=== PATIENT | male | born 1995 | race Two or more races ===

== ENCOUNTER → 2024-07-07 | Outpatient (CLI) | payer OTHER, SELFPAY ==
--- NOTE | 2024-07-07 15:53 | XR_ITS ---
Examination: Thoracic spine 3 views Technique one AP lateral coned lateral upper dorsal spine 3 views Exam date and time: July 07, 2024 1615 hours INDICATIONS: Upper back pain after falling today. FINDINGS: Adequate alignment thoracic vertebral bodies No acute thoracic fracture Intact pedicles IMPRESSION: No acute thoracic fracture
--- NOTE | 2024-07-07 15:53 | XR_ITS ---
Examination: Cervical spine 4 views TECHNIQUE: AP lateral coned AP odontoid swimmer's lateral cervical spine 4 views Exam date and time: July 07, 2024 1604 hours INDICATIONS: Patient fell today with injury to the neck, neck pain. FINDINGS: Satisfactory alignment cervical vertebral bodies No cervical fracture Intact odontoid IMPRESSION: No cervical fracture, no significant cervical disc narrowing
--- NOTE | 2024-07-07 15:53 | XR_ITS ---
Examination: Sternum 2 views TECHNIQUE: Oblique lateral sternum 2 views INDICATIONS: Patient fell today with into the sternum, sternal pain. FINDINGS: Suspicious for fracture upper body the sternum without significant displacement IMPRESSION: Suspicious for fracture upper body of the sternum without significant displacement Consider CT chest post intravenous contrast follow-up
== END | disposition home or self-care (01) ==
PROVIDERS: Referring Provider Family Medicine; Visit Provider Family Medicine
DX: S13.4XXA Sprain of ligaments of cervical spine, initial encounter (principal); S23.3XXA Sprain of ligaments of thoracic spine, initial encounter; S20.219A Contusion of unspecified front wall of thorax, initial encounter; W19.XXXA Unspecified fall, initial encounter
CPT/HCPCS: 71120; 72040; 72072